=== PATIENT | male | born 1980 | race Caucasian/White ===

== ENCOUNTER 2021-08-16 12:37 | Inpatient (IN) | payer OTHER ==
[2021-08-16] MEDS ORDERED: MAGNESIUM CITRATE 300 ML BOTTLE PO PRN (14:37)
[2021-08-16] MEDS ORDERED: ONDANSETRON *ODT* 4 MG TABLET SL PRN (14:37)
[2021-08-16] MEDS ORDERED: MENTHOL/PHENOL 1 EACH UD MM PRN (14:37)
[2021-08-16] MEDS ORDERED: NICOTINE 10 MG CARTRIDGE (INHALER) IH PRN (14:37)
[2021-08-16] MEDS ORDERED: MAG HYDROX/AL HYDROX/SIMETH 30 ML UNIT-DOSE CUP PO PRN (14:37)
[2021-08-16] MEDS ORDERED: ACETAMINOPHEN 325 MG TABLET (FP) PO PRN ×2 (14:37)
[2021-08-16] MEDS ORDERED: chlordiazePOXIDE HCL 25 MG CAPSULE PO PRN (14:37)
[2021-08-16] MEDS ORDERED: BISMUTH SUBSALICYLATE 262 MG/15 ML BTL PO PRN (14:37)
[2021-08-16] MEDS ORDERED: MAGNESIUM HYDROX 2400MG/30ML ORAL SUSPENSION 30 ML CUP PO PRN (14:37)
[2021-08-16] MEDS ORDERED: IBUPROFEN 400 MG TABLET (FP) PO PRN (14:37)
[2021-08-16 15:34] VITALS: BMI 21.9
[2021-08-16] MEDS ORDERED: ALBUTEROL SO4 HFA INHALER IH PRN (17:45)
[2021-08-16] MEDS: hydrOXYzine PAMOATE 25 MG CAPSULE (FP) PO SCH ×2 (18:40→22:19)
[2021-08-16] MEDS: THIAMINE HCL 100 MG TABLET (FP) PO SCH (22:16)
[2021-08-16] MEDS: MELATONIN 5 MG TABLETS PO SCH (22:16)
[2021-08-16] MEDS: chlordiazePOXIDE HCL 25 MG CAPSULE PO SCH (22:17)
[2021-08-17] MEDS: chlordiazePOXIDE HCL 25 MG CAPSULE PO SCH ×4 (05:26→22:37)
[2021-08-17] MEDS: hydrOXYzine PAMOATE 25 MG CAPSULE (FP) PO SCH ×5 (05:27→22:37)
[2021-08-17] MEDS: BICTEGRAV/EMTRICIT/TENOFOV (BIKTARVY) 50-200-25 MG TABLET PO SCH (11:12)
[2021-08-17] MEDS: PRENATAL VITAMINS W/ FOLIC ACID TABLET (FP) PO SCH (11:12)
[2021-08-17 13:36] LABS: HEMATOCRIT 37.3 % (35.4-49); HEMOGLOBIN 12.7 GM/dL (11.7-16.9); MCH 30.6 pg (25.7-33.7); MEAN CELL VOLUME 90.1 fl (80-96); PLATELET COUNT 75 10^3/uL (134-434); RBC 4.14 M/mm3 (4.00-5.60); RDW 13.7 % (11.9-15.9); WHITE BLOOD COUNT 2.3 K/mm3 (4.0-10.0)
[2021-08-17 13:42] LABS: ALBUMIN 2.8 g/dl (3.4-5.0); BLOOD UREA NITROGEN 12.2 mg/dL (7-18); CREATININE 0.7 mg/dL (0.55-1.3)
[2021-08-17 13:43] LABS: TOT PROT 6.3 g/dl (6.4-8.2)
[2021-08-17 13:44] LABS: BILIRUBIN,TOTAL 0.3 mg/dL (0.2-1)
[2021-08-17 13:45] LABS: CALCIUM 8.3 mg/dL (8.5-10.1)
[2021-08-17] MEDS: MELATONIN 5 MG TABLETS PO SCH (22:37)
[2021-08-17] MEDS: THIAMINE HCL 100 MG TABLET (FP) PO SCH (22:37)
[2021-08-18] MEDS: hydrOXYzine PAMOATE 25 MG CAPSULE (FP) PO SCH ×5 (05:18→22:03)
[2021-08-18] MEDS: chlordiazePOXIDE HCL 25 MG CAPSULE PO SCH ×4 (05:18→22:04)
[2021-08-18] MEDS: BICTEGRAV/EMTRICIT/TENOFOV (BIKTARVY) 50-200-25 MG TABLET PO SCH (11:06)
[2021-08-18] MEDS: PRENATAL VITAMINS W/ FOLIC ACID TABLET (FP) PO SCH (11:06)
[2021-08-18] MEDS: THIAMINE HCL 100 MG TABLET (FP) PO SCH (22:03)
[2021-08-18] MEDS: MELATONIN 5 MG TABLETS PO SCH (22:03)
[2021-08-19] MEDS ORDERED: chlordiazePOXIDE HCL 10 MG CAPSULE PO PRN
[2021-08-19] MEDS: chlordiazePOXIDE HCL 10 MG CAPSULE PO SCH ×4 (05:15→22:47)
[2021-08-19] MEDS: hydrOXYzine PAMOATE 25 MG CAPSULE (FP) PO SCH ×5 (05:15→22:47)
[2021-08-19] MEDS: BICTEGRAV/EMTRICIT/TENOFOV (BIKTARVY) 50-200-25 MG TABLET PO SCH (10:13)
[2021-08-19] MEDS: METHOCARBAMOL 500 MG TABLET PO PRN (10:13)
[2021-08-19] MEDS: PRENATAL VITAMINS W/ FOLIC ACID TABLET (FP) PO SCH (10:13)
[2021-08-19] MEDS: MELATONIN 5 MG TABLETS PO SCH (22:47)
[2021-08-19] MEDS: THIAMINE HCL 100 MG TABLET (FP) PO SCH (22:47)
[2021-08-20] MEDS: hydrOXYzine PAMOATE 25 MG CAPSULE (FP) PO SCH ×5 (05:21→23:01)
[2021-08-20] MEDS: chlordiazePOXIDE HCL 10 MG CAPSULE PO SCH ×2 (05:21→18:55)
[2021-08-20] MEDS: BICTEGRAV/EMTRICIT/TENOFOV (BIKTARVY) 50-200-25 MG TABLET PO SCH (11:00)
[2021-08-20] MEDS: PRENATAL VITAMINS W/ FOLIC ACID TABLET (FP) PO SCH (11:00)
[2021-08-20] MEDS: METHOCARBAMOL 500 MG TABLET PO PRN (11:00)
[2021-08-20] MEDS: THIAMINE HCL 100 MG TABLET (FP) PO SCH (23:01)
[2021-08-20] MEDS: MELATONIN 5 MG TABLETS PO SCH (23:01)
[2021-08-21] MEDS ORDERED: chlordiazePOXIDE HCL 10 MG CAPSULE PO ONE (05:00)
[2021-08-21] MEDS: hydrOXYzine PAMOATE 25 MG CAPSULE (FP) PO SCH ×2 (06:02→10:58)
[2021-08-21 06:49] VITALS: BP 114/78; PULSE 88; TEMP 97.5
[2021-08-21] MEDS: PRENATAL VITAMINS W/ FOLIC ACID TABLET (FP) PO SCH (10:58)
[2021-08-21] MEDS: BICTEGRAV/EMTRICIT/TENOFOV (BIKTARVY) 50-200-25 MG TABLET PO SCH (10:58)
== END 2021-08-21 09:05 | disposition home or self-care (01) | DRG 774 ==
LOC: YASAS 12:37 → Y6N 17:56
PROVIDERS: ADMIT Allergy & Immunology; ATTEND Allergy & Immunology
PROC: HZ2ZZZZ Detoxification Services for Substance Abuse Treatment (ICD-10-PCS; principal; 2021-08-16)
DX: F10.230 Alcohol dependence with withdrawal, uncomplicated (principal); F14.20 Cocaine dependence, uncomplicated; F12.20 Cannabis dependence, uncomplicated; F17.210 Nicotine dependence, cigarettes, uncomplicated; Z21 Asymptomatic human immunodeficiency virus [HIV] infection status; D69.6 Thrombocytopenia, unspecified; D72.819 Decreased white blood cell count, unspecified; A53.0 Latent syphilis, unspecified as early or late; B19.10 Unspecified viral hepatitis B without hepatic coma; J45.909 Unspecified asthma, uncomplicated; Z86.19 Personal history of other infectious and parasitic diseases
CPT/HCPCS: 36415; 80053; 85027; 86593; 86780; C9803; U0003; U0005